=== PATIENT | male | born 1960 | race Caucasian/White ===

== ENCOUNTER 2018-03-29 08:58 | Emergency (ER) | payer BC ==
--- NOTE | 2018-03-29 09:16 | UC ---
General HPI - HPI Summary HPI Summary: The patient is a 58-year-old male who was brought here by his family for evaluation of confusion. His states that she woke him about 7 AM to tell him that she was going to work. He seemed fine at that time. About 8 AM she received a call from him. He sounded a little disoriented and asked where she was. He had also asked her if she had paid some bills were on the counter. He was tearful. He said he didn't feel right. Denies any chest pain or shortness of breath. He states he has a very mild right temporal headache. He works as a it systems analyst consultant. Denies any recent trauma. Has had no recent illness. He has a history hypertension and dyslipidemia. He has had no recent nausea vomiting or diarrhea. He has had no fever or chills. - History of Current Complaint Chief Complaint: UCGeneralIllness Stated Complaint: INCOHERENT/NOT FEELING RIGHT Time Seen by Provider: 03/29/18 09:00 Hx Obtained From: Patient, Family/[employer]er - Onset/Duration: Sudden Onset, Lasting Hours Timing: Constant Onset Severity: Mild Current Severity: Mild Pain Intensity: 2 - right sided [place] Associated Signs & Symptoms: Positive: Confusion, Headache - mild - Allergy/Home Medications Allergies/Adverse Reactions: Allergies Allergy/AdvReac Type Severity Reaction Status Date / Time No Known Allergies Allergy Verified 03/29/18 09:04 Home Medications: Home Medications Ibuprofen TAB* [Motrin TAB* 400 MG] 600 - 800 mg PO Q6H PRN 03/29/18 [History Confirmed 03/29/18] Losartan/Hydrochlorothiazide [Losartan-Hctz 100-25 mg Tab] 1 tab PO DAILY [History Confirmed 03/29/18] Simvastatin TAB(NF) [Zocor(NF)] 80 mg PO DAILY 03/29/18 [History Confirmed 03/29] PMH/Surg Hx/FS Hx/Imm Hx Previously Healthy: Yes Endocrine History: Dyslipidemia Cardiovascular History: Cardiac Disease - Surgical History Surgical History: Yes Surgery Procedure, Year, and Place: Back - Family History Known Family History: Positive: Hypertension, Diabetes - Social History Alcohol Use: Occasionally Substance Use Type: None Smoking Status (MU): Never Smoked Tobacco Review of Systems Constitutional: Negative Skin: Negative Eyes: Negative ENT: Negative Respiratory: Negative Cardiovascular: Negative Gastrointestinal: Negative Genitourinary: Negative Motor: Negative Neurovascular: Negative Musculoskeletal: Negative Neurological: Headache Psychological: Anxious Is Patient Immunocompromised?: No All Other Systems Reviewed And Are Negative: Yes Physical Exam Triage Information Reviewed: Yes Appearance: Well-Appearing, No Pain Distress, Well-Nourished Vital Signs: Initial Vital Signs Temp 97.1 F 03/29/18 09:00 Pulse 85 03/29/18 09:00 Resp 16 03/29/18 09:00 BP 167/112 03/29/18 09:00 Pulse Ox 99 03/29/18 09:00 Eyes: Positive: Conjunctiva Clear, Other: - eomi/perrl ENT: Positive: Hearing grossly normal, TMs normal. Negative: Nasal congestion, Nasal drainage, Tonsillar swelling, Tonsillar exudate, Trismus, Muffled voice, Hoarse voice Neck exam: Normal Neck: Positive: Supple, Nontender, No Lymphadenopathy, Other: - no bruits Respiratory: Positive: Lungs clear, Normal breath sounds, No respiratory distress, No accessory muscle use Cardiovascular: Positive: RRR, No Murmur Abdomen Description: Positive: Nontender, Soft. Negative: CVA Tenderness (R), CVA Tenderness (L) Neurological: Positive: Alert, Other: - answers most questions appropriate...but has long pauses and appear contemplative before answering. GCS 15/15, normal gait, nonfocal exam, dtrs brisk and symmetrical Psychological: Positive: Other: - tearful and appears anxious Skin Exam: Normal Diagnostics - Laboratory Diagnostic Studies Completed/Ordered: FS 102 - Radiology No standard instances Xray Interpretation: No Acute Changes - CT of Brain - EKG Cardiac Rate: NL Cardiac Rhythm: Sinus: Normal Ectopy: None ST Segment: Normal EKG Comparison: Other - no old EKG, Q's III, aVF Course/Dx - Course Course Of Treatment: d/w Esther Hunt NP [facility] ED. accepts patient. will drive - Differential Dx - Multi-Symptom Provider Diagnoses: acute mild mental status changes Discharge - Sign-Out/Discharge Documenting (check all that apply): Patient Departure - Discharge Plan Condition: Stable Disposition: TRANS HIGHER LVL OF CARE FAC Referrals: No Primary Care Phys,NOPCP [Primary Care Provider] - Additional Instructions: please go directly to the ER I spoke to Esther Hunt CLAIM PROCESSOR and they are expecting you - Billing Disposition and Condition Condition: STABLE Disposition: Trans Higher Lvl of Care Fac
[2018-03-29 09:44] VITALS: BP 148/94
--- NOTE | 2018-03-29 09:44 | RAD ---
Indication: Confusion. Mild RIGHT temporal headache. Comparison: No relevant prior exams available on the [facility]. Technique: Noncontrast CT vertex of skull through foramen magnum. Report: Unremarkable cerebral sulci, ventricles, and basal cisterns. Negative for portillo matter white matter obscuration, intra or extra-axial hemorrhage, or mass effect. Unremarkable partially visualized orbital contents. No fracture or suspicious lesion of the calvarium or skull base. Clear partially visualized paranasal sinuses and mastoid air spaces. 1.1 cm soft tissue density lesion at the RIGHT parietal scalp near the vertex with associated calcification most suspicious for a sebaceous cyst. IMPRESSION: #. No CT evidence for traumatic brain injury or acute intracranial process.
== END 2018-03-29 10:05 | disposition short-term general hospital (02) ==
LOC: UCCORT 08:58
DX: R41.82 Altered mental status, unspecified (principal); I10 Essential (primary) hypertension; E78.5 Hyperlipidemia, unspecified
CPT/HCPCS: 70450; 93005; 99213; G0463

== ENCOUNTER 2019-05-11 18:27 | Emergency (ER) | payer BC, OTHER ==
[2019-05-11 18:31] VITALS: BP 145/104
--- NOTE | 2019-05-11 18:47 | UC ---
Skin Complaint HPI - HPI Summary HPI Summary: 59 yo male was working in [employer] stepped on ground wasp nest three stings to right foot red swollen warm itchy painful stings occurred this AM - History of Current Complaint Chief Complaint: UCAllergicReaction Time Seen by Provider: 05/11/19 18:35 Stated Complaint: WASP STING ALLERGIC REACTION Hx Obtained From: Patient Onset/Duration: Sudden Onset Skin Exposure Onset/Duration: Hours Ago Onset Severity: Severe Current Severity: Severe Pain Intensity: 9 Pain Scale Used: 0-10 Numeric Location: Discrete Character: Swelling, Pruritus, Pain, Redness Aggravating Factor(s): Touch Alleviating Factor(s): Nothing Associated Signs & Symptoms: Positive: Tenderness. Negative: Nausea, Vomiting, Numbness, Thirst, Diaphoresis, Weakness, Pallor, Shivering, Difficulty Breathing , Fever, Chills, Cough, Wheezing, Chest Pain, Hoarseness, Throat Tightening, Rash, Abdominal Pain, Lightheadedness, Syncope, Drainage, Bruising - Allergy/Home Medications Allergies/Adverse Reactions: Allergies Allergy/AdvReac Type Severity Reaction Status Date / Time No Known Allergies Allergy Verified 05/11/19 18:31 Home Medications: Home Medications Cholecalciferol TAB* [Vitamin D TAB*] 5,000 unit PO BEDTIME 05/11/19 [History Confirmed 05/11/19] PMH/Surg Hx/FS Hx/Imm Hx Previously Healthy: Yes Cardiovascular History: Hypertension - Surgical History Surgical History: Yes Surgery Procedure, Year, and Place: Back - Family History Known Family History: Positive: Hypertension, Diabetes - Social History Alcohol Use: Occasionally Alcohol Amount: once a week Substance Use Type: None Smoking Status (MU): Never Smoked Tobacco Review of Systems All Other Systems Reviewed And Are Negative: Yes Constitutional: Positive: Negative Skin: Positive: Negative Eyes: Positive: Negative ENT: Positive: Negative Respiratory: Positive: Negative Cardiovascular: Positive: Negative Gastrointestinal: Positive: Negative Genitourinary: Positive: Negative Motor: Positive: Negative Neurovascular: Positive: Negative Musculoskeletal: Positive: Edema Neurological: Positive: Negative Psychological: Positive: Negative Physical Exam Triage Information Reviewed: Yes Appearance: Well-Appearing, No Pain Distress, Well-Nourished Vital Signs: Initial Vital Signs Temp 98.6 F 05/11/19 18:28 Pulse 76 05/11/19 18:28 Resp 16 05/11/19 18:28 BP 145/104 05/11/19 18:28 Pulse Ox 99 05/11/19 18:28 Vital Signs Reviewed: Yes Eyes: Positive: Conjunctiva Clear ENT: Positive: Hearing grossly normal. Negative: Nasal congestion, Nasal drainage, Trismus, Muffled voice, Dental tenderness Dental: Negative: Abscess @ Neck: Positive: Supple, Nontender, No Lymphadenopathy Respiratory: Positive: Lungs clear, Normal breath sounds, No respiratory distress, No accessory muscle use Cardiovascular: Positive: RRR, No Murmur Musculoskeletal: Positive: Edema @ - see image Neurological: Positive: Alert Psychological Exam: Normal Skin Exam: Other - see image Images Feet (Multiple View): 1 - sting 2 - sting 3 - sting Course/Dx - Diagnoses Provider Diagnosis: Sting from hornet, wasp, or bee Discharge ED - Sign-Out/Discharge Documenting (check all that apply): Patient Departure All imaging exams completed and their final reports reviewed: No Studies - Discharge Plan Condition: Stable Disposition: HOME Prescriptions: Fexofenadine (NF) [Stacey (NF)] 60 mg PO QAM PRN #7 tab PRN Reason: Itching hydrOXYzine HCL TAB* [Atarax 25 MG TAB*] 50 mg PO DAILY #14 tab predniSONE [Prednisone 20 MG TAB] 60 mg PO DAILY #9 tab Patient Education Materials: Insect Bite or Sting (ED), Ice Pack Application ( ED) Referrals: No Primary Care Phys,NOPCP [Primary Care Provider] - Additional Instructions: elevate elevate elevate ice stings recheck in 2 days if not improved - Billing Disposition and Condition Condition: STABLE Disposition: Home
[2019-05-11] MEDS: predniSONE TAB* 20 MG PO ONE (18:50)
[2019-05-11] MEDS: hydrOXYzine HCL TAB* 25 MG PO ONE (18:51)
== END 2019-05-11 18:55 | disposition home or self-care (01) ==
LOC: UCCORT 18:27
DX: T63.461A Toxic effect of venom of wasps, accidental (unintentional), initial encounter (principal); M79.671 Pain in right foot; Y92.821 Forest as the place of occurrence of the external cause; I10 Essential (primary) hypertension
CPT/HCPCS: 99212; A9270-GY; G0463; J7512